=== PATIENT | male | born 1990 | race Caucasian/White ===

== ENCOUNTER 2017-03-04 16:39 | Emergency (ER) | payer OTHER ==
[2017-03-04] MEDS ORDERED: methylPREDNISolone SOD SUCC 125 MG/2 ML VIAL IM ONE (16:46)
--- NOTE | 2017-03-04 16:54 | ED Physician Documentation ---
General Adult - HISTORIAN Historian: patient - HPI Stated Complaint: rash Chief Complaint: General Adult Onset: days ago Timing: still present Severity: moderate Further Comments: yes (Pt is a 26 yo male with rash. Pt has had numerous episodes of poison christal. Pt works in the[employer], [employer], etc.) - ROS CONST: no problems EYES/ENT: none CVS/RESP: none GI/: none MS/SKIN/LYMPH: rash - PAST HX Past History: none Allergies/Adverse Reactions: Allergies Allergy/AdvReac Type Severity Reaction Status Date / Time cefaclor [From Ceclor] AdvReac Intermediate Rash Unverified 03/04/17 16:50 Home Medications: Ambulatory Orders Medication Instructions Recorded NK [NK] 03/04/17 - SOCIAL HX Smoking History: non-smoker - FAMILY HX Family History: No - VITAL SIGNS Vital Signs: Vital Signs Temp Pulse Resp BP Pulse Ox 97.6 F 76 12 118/75 98 03/04/17 16:46 03/04/17 16:46 03/04/17 16:46 03/04/17 16:46 03/04/17 16:46 - REVIEWED ASSESSMENTS Nursing Assessment Reviewed: Yes Vitals Reviewed: Yes Progress - Progress Progress: Solu-medrol 125 mg IM Rx Prednisone 10 mg. Take 6 tablets by mouth once daily for 2 days; then take 5 tablets by mouth once daily for 2 days; then take 4 tablets by mouth once daily for 2 days; then take 3 tablets by mouth once daily for 2 days; then take 2 tablets by mouth once daily for 2 days; then take 1 tablets by mouth once daily for 2 days; then stop. May take Benadryl as directed. Available over the counter. ED Results Lab/Radiology - Orders Orders: ED Orders Category Date Time Status methylPREDNISolone SOD SUCC [Solu-MEDROL] Med 03/04/17 16:46 Discontinued 125 mg IM NOW ONE General Adult Physical Exam - PHYSICAL EXAM GENERAL APPEARANCE: no distress NECK: normal inspection, supple RESPIRATORY: no resp distress BACK: normal inspection SKIN: other (chest and extremities, linear c/w poison christal) EXTREMITIES: non-tender, normal range of motion, no evidence of injury NEURO: oriented X3, motor nml, sensation nml Discharge Clincal Impression: Poison Christal Referrals: Tamika Randall MD [Primary Care Provider] - Home Medications: Ambulatory Orders NK [NK] 03/04/17 Condition: Good Disposition: 01 HOME, SELF-CARE Decision to Admit: NO Decision Time: 16:59
[2017-03-04 17:21] VITALS: BP 118/75
== END 2017-03-04 17:08 | disposition home or self-care (01) ==
LOC: ED 16:39
DX: L23.7 Allergic contact dermatitis due to plants, except food (principal)
CPT/HCPCS: 96372; 99283; J2930

== ENCOUNTER 2018-09-08 11:08 | Emergency (ER) | payer OTHER ==
--- NOTE | 2018-09-08 11:16 | ED Physician Documentation ---
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 No fever No shortness of breath) - ROS CONST: none CVS/RESP: none MS/SKIN/LYMPH: rash - PAST HX Past History: none Surgeries/Procedures: No Immunizations: UTD Allergies/Adverse Reactions: Allergies Allergy/AdvReac Type Severity Reaction Status Date / Time Macrolide Antibiotics Allergy Unverified 09/08/18 11:18 cefaclor [From Ceclor] AdvReac Intermediate Rash Unverified 09/08/18 11:18 Home Medications: Ambulatory Orders Medication Instructions Recorded NK 03/04/17 - SOCIAL HX Smoking History: non-smoker Alcohol Use: none Drug Use: none - FAMILY HX Family History: none - VITAL SIGNS Vital Signs: Vital Signs Temp Pulse Resp BP Pulse Ox 97.6 F 76 18 116/63 99 09/08/18 11:08 09/08/18 11:34 09/08/18 11:34 09/08/18 11:34 09/08/18 11:34 - REVIEWED ASSESSMENTS Nursing Assessment Reviewed: Yes Vitals Reviewed: Yes ED Results Lab/Radiology - Orders Orders: ED Orders Category Date Time Status methylPREDNISolone ACETATE [Depo-Medrol] Med 09/08/18 11:23 Discontinued 80 mg IM NOW ONE Skin Rash Physical Exam - EXAM General Appearance: no acute distress, alert Skin: warm,dry, skin rash, erythema (legs (biltaral) arms (bilateral) hands (bilateral) ) Location: generalized Character: symmetric, patchy, urticarial, erythematous Symptoms: warmth, tenderness, swelling Extremities: non-tender, nml ROM, no edema EENT: eyes nml inspection, lips nml, gums nml, pharynx nml Neck: trachea midline Respiratory: no resp distress, chest non-tender, breath sounds normal CVS: reg. rate & rhythm, heart sounds nml Abdomen: non-tender, no organomegaly, nml bowel sounds, no distention Neuro/Psych: oriented x3, CN's nml as tested, motor nml Discharge Clincal Impression: Allergic reaction Qualifiers: Encounter type: initial encounter Qualified Code(s): T78.40XA - Allergy, unspecified, initial encounter Referrals: Tamika Randall MD [Primary Care Provider] - 2 Days Comments: 1. Medrol dose pack as directed start at noon 09.09.2018 2. Ranitidine 150 mg take 1 by mouth twice per day 3. Zyrtec 10 mg take 1 by mouth daily 4. Watch new exposures 5. See PCP if no improvement in 2-4 days 6. Return to ER for any concerns Condition: Stable Disposition: 01 HOME, SELF-CARE Decision to Admit: NO Date of Decison to Admit: 09/08/18 Decision Time: 11:26
[2018-09-08] MEDS ORDERED: methylPREDNISolone ACETATE 80 MG/ML VIAL IM ONE (11:23)
[2018-09-08 11:46] VITALS: BP 116/63
== END 2018-09-08 11:34 | disposition home or self-care (01) ==
LOC: ED 11:08
DX: R21 Rash and other nonspecific skin eruption (principal); T78.40XA Allergy, unspecified, initial encounter; Y92.9 Unspecified place or not applicable; Y93.9 Activity, unspecified; Y99.9 Unspecified external cause status
CPT/HCPCS: 96372; J1040

== ENCOUNTER 2019-02-02 13:15 | Outpatient (CLI) | payer BC ==
--- NOTE | 2019-02-06 10:33 | OP Clinic Progress Note ---
SUBJECTIVE: Kaiden Ryder is a 28-year-old male who presented today for an ingrown toenail that I saw him in clinic about a couple days ago. We scheduled him to come in for a procedure to have the left great toenail removed. The patient more so had a history of an ingrown toenail which he trimmed out after having some purulence which got better but then dropped a rubber mallet on his great toe which caused quite a bit of bleeding underneath the toe necessitating the removal of the toenail in order for me to look and make sure there is no abrasion or laceration down to the bone. The patient presented today for that nail removal that will only be temporary and he knows that a new nail will return. The patient does not admit to any fevers, chills, nausea, vomiting, shortness of breath or chest pain at this time. He admits to taking the medication that I prescribed and is feeling that it is looking and feeling better so far. OBJECTIVE: Vitals: Temperature 98.2 degrees Fahrenheit, heart rate 71, respiration rate 20, blood pressure 127/75. O2 saturation is 98% on room air. Vascular: DP and PT pulses at 2+, left foot. Capillary refill time is less than 3 seconds to the toes of the left foot. There is still very mild edema noted to the lateral edge of the left great toenail and proximal edge. Dermatologic: There is obvious hematoma noted/possible serous drainage/fluid collection noted underneath the left great toenail. This is underneath the nail 100%. The nail is also slightly loose. There is also a small bit of red irritation and swelling on the lateral edge of the great toenail, left hallux. There is no purulence or malodor noted, however. There is no ecchymosis present of the left great toe either. Musculoskeletal: There is still some pain on palpation noted with direct pressure to the left great toenail as well as along the lateral edge of the proximal great toenail. There is no pain on palpation noted at the distal phalanx area indicative of any sort of osseous lesion or fracture. There are no gross abnormalities noted except for a slightly loose toenail still of the left hallux. Neurologic: Light touch sensation is intact to the toes of the left foot. Psychiatric: Mental status is grossly normal, and affect is normal. ASSESSMENT AND PLAN: 1. Injury of toe on left foot, subsequent encounter, S99.922A. 2. Onychocryptosis, L60.0. We discussed the risks and benefits of a total nail avulsion of the left great toenail that include but are not limited to bleeding and infection. The patient understands the main purpose of this is to remove the toenail and drain any fluid and check for any sort of abrasion or laceration in the nail bed that goes down to bone. The patient has been placed on antibiotics since I last saw him and will continue and finish this course. The patient understood the plan for the procedure and signed consent and gave consent, both by written and verbal consent. The consent was signed and placed in the chart. PROCEDURE #1: Total nail avulsion of the left great toenail (temporary). An alcohol swab was utilized to clean the base of the left hallux. The left hallux was then injected with a total of 5 mL of a 1:1 mix of 2% lidocaine plain and 0.5% Marcaine plain. The anesthesia was obtained appropriately and the left great toe was then swabbed with Betadine twice for a good prep. The left great toenail was then freed from surrounding edges with a hemostat and then avulsed appropriately. Upon visual exam of the nail bed there was a small abrasion, however, this was very superficial and did not go down deep at all and there was definitely no bone exposed of any kind. The site was flushed with a copious amount of normal saline. It should be noted that as soon as the hemostat was placed under the nail fluid drainage of a serosanguineous nature came from the area under the nail. There was no malodor noted at all. Upon good flushing of the nail bed after removal of the toenail it was dried and hemostasis obtained by pressure. The dressing was then applied consisting of triple antibiotic ointment, 4x4 gauze, 1-inch Evie and 1-inch Coban beginning on the toe and ending on the distal forefoot to help hold it on the toe. The patient tolerated the procedure well. He had no further questions. Postprocedure instructions were given both verbally and by written instructions. The patient understands them and knows that we will plan to see him in 1 week to make sure that he is healing appropriately. The patient was pleased with the procedure and we will see him in 1 week from yesterday in outpatient clinic. The patient is to finish his antibiotics. I do not have any real concern for infection of the bone at this time as the nail bed looked beautiful. Tigist Salgado.P.M. (Dictated/Not Signed) Drew Job#: [id number] MTDD
== END 2019-02-02 13:16 ==
LOC: POD 13:15
PROVIDERS: ATTEND Podiatrist Foot & Ankle Surgery
DX: S99.922A Unspecified injury of left foot, initial encounter (principal); L60.0 Ingrowing nail
CPT/HCPCS: 11730; J2001; J3490; A4554

== ENCOUNTER 2019-02-08 13:02 | Outpatient (CLI) | payer BC ==
--- NOTE | 2019-02-12 15:45 | OP Clinic Progress Note ---
SUBJECTIVE: Kaiden Ryder is a 28-year-old male who presented for follow-up of a left total nail avulsion of the great toenail which was temporary. The patient denies any concerns or issues in this last week. The patient states that he just finished his antibiotics that he was prescribed as well. He just finished that a day or two ago. He denies any complications so far. He states that he only used the antibiotic ointment for about 2 days after the procedure and has just done a Band-Aid since then. The patient does not admit to any fevers, chills, nausea, vomiting, shortness of breath or chest pain at this time. OBJECTIVE: Vitals: Temperature 97.9 degrees Fahrenheit, heart rate 74, respiration rate 18, blood pressure 120/70. Pain is 0/10. Vascular: DP and PT pulses at 2+, left foot. Capillary refill time is less than 3 seconds to the toes of the left foot. There is no edema noted on the left great toe or foot. Dermatologic: There is a dry nail bed that has healed beautifully with a very small amount of tiny bulla formation where it appears the Band-Aid that was small was rubbing the edge of the bandage right on that spot in the nail bed as it was not covering the nail bed entirely. There is no erythema, drainage, malodor or any concerns for infection at this time. There are no concerning areas on the nail bed and it appears to have healed up beautifully including the very superficial small abrasion that was noted when the procedure was first performed, evaluating for any concern due to the trauma to the nail the patient had sustained. Musculoskeletal: There is mild pain on palpation only at the site of the bulla. The bulla was left intact and will go away on its own with continued protection from the patient. There are no other gross abnormalities or concerning areas of the left foot. Again, the patient is status post left total nail avulsion which was temporary and we expect the new nail to grow back. There are no other concerning areas or gross abnormalities noted. Neurologic: Light touch sensation is intact to the toes of the left foot. Psychiatric: Mental status is grossly normal, and affect is normal. ASSESSMENT AND PLAN: 1. Injury of toe on left foot, subsequent encounter, Z74.848K. 2. Onychocryptosis, L60.0. The patient appears to have healed beautifully and I encouraged him to continue to watch the blister and continue to dress with a larger Band-Aid daily for another week and he should be good to go at that point. The patient is to look for any signs of redness, warmth or signs of infection and notify me of any concerns. The patient has no further concerns or questions and states that he is having zero pain whatsoever. He will do the bandage daily for 1 more week. Return to the clinic as needed. Otherwise, we will see him for anything else he may have an issue with in the future. Isabelle SalgadoP.M. (Dictated/Not Signed) Drew & 02/12/19 Job#: [id number] & [id number] MTDD
== END 2019-02-08 13:03 ==
LOC: POD 13:02
PROVIDERS: ATTEND Podiatrist Foot & Ankle Surgery
DX: Z98.890 Other specified postprocedural states (principal); S99.922A Unspecified injury of left foot, initial encounter; L60.0 Ingrowing nail